=== PATIENT | male | born 1980 | race Caucasian/White ===

== ENCOUNTER 2018-04-14 19:25 | Emergency (ER) | payer BC, OTHER ==
[~2018-04-14] VITALS: Ht 190.5 cm; Wt 107.5 kg
[2018-04-14 19:35] VITALS: BP 163/104
[2018-04-14] MEDS ORDERED: SODIUM CHLORIDE 0.9% 1,000ML IVBOLUS ONE ×2 (20:00→22:00)
[2018-04-14] MEDS ORDERED: SODIUM CHLORIDE FLUSH 10ML SYR IVF ONE (20:00)
[2018-04-14] MEDS ORDERED: KETOROLAC 30 MG/1 ML IVPush ONE (20:00)
[2018-04-14] MEDS ORDERED: KETOROLAC 30 MG/1 ML ONE (20:11)
[2018-04-14 20:13] LABS: BASOPHILS # (AUTO) 0.03 x10^3/uL (0-0.1); BASOPHILS % (AUTO) 1 % (0-1); EOSINOPHILS # (AUTO) 0.11 x10^3/uL (0-0.4); EOSINOPHILS % (AUTO) 3 % (1-7); LYMPHOCYTES # (AUTO) 1.46 x10^3/uL (1-3.4); LYMPHOCYTES % (AUTO) 34 % (22-44); MD NO; MEAN CORPUSCULAR HEMOGLOBIN 30.5 pg (27.5-34.5); MEAN CORPUSCULAR HGB CONC 34.4 g/dL (33.2-36.2); MEAN CORPUSCULAR VOLUME 88.6 fL (81-97); MEAN PLATELET VOLUME 9.7 fL (7.4-10.4); MONOCYTES # (AUTO) 0.41 x10^3/uL (0.2-0.8); MONOCYTES % (AUTO) 9 % (2-9); NEUTROPHILS # (AUTO) 2.32 x10^3/uL (1.8-6.8); NEUTROPHILS % (AUTO) 54 % (42-75); PLATELET COUNT 141 x10^3/uL (130-400); RED CELL DISTRIBUTION WIDTH 13.1 % (9.4-14.8)
[2018-04-14 20:25] LABS: ALANINE AMINOTRANSFERASE 63 U/L (12-78); ALBUMIN 3.7 g/dL (3.4-5.0); ANION GAP 9 mmol/L (5-15); CALCIUM 8.5 mg/dL (8.5-10.1); CHLORIDE 108 mmol/L (98-107); CREATININE 0.92 mg/dL (0.7-1.3)
[2018-04-14 20:27] LABS: ALKALINE PHOSPHATASE 95 U/L (45-117); BILIRUBIN,TOTAL 0.3 mg/dL (0.2-1.0); TOTAL PROTEIN 7.2 g/dL (6.4-8.2)
[2018-04-14 20:46] LABS: C-REACTIVE PROTEIN, QUANT 2.2 mg/dL (0.02-0.49)
[2018-04-14 21:13] LABS: HCT (SEDRATE) 44.3 % (39.2-51.8)
[2018-04-14 22:11] LABS: MICROSCOPIC NOT IND
[2018-04-14 22:13] LABS: CULTURE INDICATED? NO
== END 2018-04-14 23:12 | disposition home or self-care (01) ==
LOC: ED 21:28
DX: M62.82 Rhabdomyolysis (principal); R53.83 Other fatigue
CPT/HCPCS: 36415; 80053; 81003; 82550; 85025; 85651; 86140; 93005; 96374; 99285; J1885; J7030